=== PATIENT | male | born 1970 | race Caucasian/White ===

== ENCOUNTER → 2021-07-14 | Outpatient (CLI) | payer OTHER ==
--- NOTE | 2021-07-14 15:46 | EKG ---
[address] [address] ELECTROCARDIOGRAM REPORT Name: NAHEED WU Room #: [facility] [id number] Admission: 07/14/21 Attend Phys: Carolann Escudero, Discharge: Date of : 74 Report #: [id number] [facility] Test Date: 2021-07-14 Test Time: 10:56:33 Pat Name: NAHEED WU Department: Room: [facility] Orthotic Assistant[facility] 1970 Requested By: Carolann Escudero Order Number: [id number] : Junaid Soliz Measurements Intervals [place] Rate: 62 P: 56 DE: 133 QRS: 19 QRSD: 92 T: 36 QT: 376 QTc: 382 Interpretive Statements Sinus rhythm No previous ECG available for comparison Electronically Signed On 07-14-2021 15:46:28 CDT by Junaid Soliz [email or web address] <ELECTRONICALLY SIGNED> By: Junaid Soliz MD, [facility] 07/14/21 1546 [id number] [id number] Junaid Soliz MD, FACC /EPI
== END ==
LOC: CV 10:36
PROVIDERS: ATTEND Podiatrist Foot & Ankle Surgery
DX: Z01.810 Encounter for preprocedural cardiovascular examination (principal)